=== PATIENT | male | born 1945 | race Caucasian/White ===

== ENCOUNTER 2016-07-21 14:00 | Emergency (ER) | payer MEDICARE ==
[~2016-07-21 14:00] MED LIST: FISH-EPA1000 MG PO; HALF81 PO; LAM250 PO; LIPITOR40 PO; LISINOPRIL PO; MULTIPLE VIT PO; PCET PO; PRILO PO; ZESTORETIC PO; [UNRECOGNIZED DRUG - OTHER] PO
[2016-07-21 14:45] LABS: BASOPHILS 0.2 %; BASOPHILS ABSOLUTE 0.02 10/3/uL (0.0-0.16); EOSINOPHILS 0.1 %; EOSINOPHILS ABSOLUTE 0.01 10/3/uL (0.0-0.53); HEMOGLOBIN 14.5 g/dL (13.6-17.8); IMMATURE GRANULOCYTES 0.2 %; IMMATURE GRANULOCYTES ABSOLUTE 0.03 10/3/uL (0.0-0.11); LYMPHOCYTES 12.6 %; LYMPHOCYTES ABSOLUTE 1.54 10/3/uL (0.67-4.30); MEAN CORPUS HGB CONC 34.5 g/dL (32.0-36.0); MEAN CORPUSCULAR HEMOGLOB 32.6 pg (26.0-34.0); MEAN CORPUSCULAR VOLUME 94.4 fL (80-100); MEAN PLATELET VOLUME 11.8 fL (9.2-13.0); MONOCYTES 5.5 %; MONOCYTES ABSOLUTE 0.67 10/3/uL (0.21-1.20); NEUTROPHILS 81.4 %; NEUTROPHILS ABSOLUTE 9.99 10/3/uL (2.02-8.40); PLATELET COUNT 137 10/3/uL (150-400); RBC DISTRIBUTION WIDTH 13.4 % (12.0-16.0); RED CELL COUNT 4.45 10/6/uL (4.7-6.1)
[2016-07-21 14:47] LABS: ER CBC TAT 0 Hrs 13 Mins; MANUAL DIFF NO %; WHITE BLOOD CELLS 12.3 10/3/uL (4.5-10.5)
[2016-07-21 14:51] LABS: BUN (BLOOD UREA NITROGEN) 14 MG/DL (6-23); CALCIUM, SERUM 9.5 MG/DL (8.5-10.4); CHLORIDE, SERUM 105 MMOL/L (96-112); CREATININE 1.46 MG/DL (0.70-1.30); GFR AFRICAN AMERICAN 56 ML/MIN (>=60); GFR NON AFRICAN AMERICAN 48 ML/MIN (>=60); POTASSIUM, SERUM 3.7 MMOL/L (3.5-5.3); SODIUM, SERUM 138 MMOL/L (135-148)
[2016-07-21 14:52] LABS: CO2 (CARBON DIOXIDE) 25 MMOL/L (24-34); GLUCOSE, SERUM 113 MG/DL (60-99)
[2016-07-21 15:29] LABS: ASCORBIC ACID (UR NOT ORDER) NEG (NEG); BILIRUBIN, URINE NEGATIVE (NEG); ER URINALYSIS TAT 0 Hrs 07 Mins; KETONE, URINE NEGATIVE (NEG); LEUKOCYTE ESTERASE(NOT OR NEG (NEG); NITRITE (URINE) NEG (NEG); WBC (NOT ORDERED) (RFLEX) 1 (0-5)
== END 2016-07-21 16:54 | disposition home or self-care (01) ==
LOC: ER 14:00
PROVIDERS: Hospitalist
DX: N13.2 Hydronephrosis with renal and ureteral calculous obstruction (principal); F03.90 Unspecified dementia, unspecified severity, without behavioral disturbance, psychotic disturbance, mood disturbance, and anxiety; I10 Essential (primary) hypertension; Z91.048 Other nonmedicinal substance allergy status; Z79.82 Long term (current) use of aspirin
CPT/HCPCS: 74176; 80048; 81001; 85025; 93005; 96374; 96375; 99284; J1170; J2405